=== PATIENT | female | born 1940 | race Caucasian/White ===

== ENCOUNTER 2019-05-15 11:03 | Outpatient (CLI) | payer MEDICARE, BC ==
[2019-05-15 17:25] LABS: BASOPHILS % (AUTO) 0.4 %; EOSINOPHILS # (AUTO) 0.1 10^3/uL (0.0-0.7); EOSINOPHILS % (AUTO) 2.7 %; HGB - HEMOGLOBIN 12.6 g/dL (12.0-16.0); LYMPHOCYTES # (AUTO) 1.6 10^3/uL (1.5-3.5); LYMPHOCYTES % (AUTO) 32.2 %; MEAN CORPUSCULAR HEMOGLOBIN 30.8 pg (27.0-31.0); MEAN CORPUSCULAR HGB CONC 32.1 g/dL (32.0-36.0); MEAN CORPUSCULAR VOLUME 96.1 fL (81.0-99.0); MEAN PLATELET VOLUME 11.2 fL (7.9-10.8); MONOCYTES # (AUTO) 0.5 10^3/uL (0.0-1.0); MONOCYTES % (AUTO) 10.4 %; NEUTROPHILS # (AUTO) 2.6 10^3/uL (1.5-6.6); NEUTROPHILS % (AUTO) 54.1 %; PLT - PLATELET COUNT 217 10^3/uL (130-450); RED BLOOD COUNT 4.09 10^6/uL (4.20-5.40); RED CELL DISTRIBUTION WIDTH 13.7 % (12.0-15.0); WHITE BLOOD COUNT 4.8 x10^3/uL (4.8-10.8)
[2019-05-15 17:54] LABS: ALBUMIN 3.9 g/dL (3.2-5.5); ALBUMIN/GLOBULIN RATIO 1.3 (1.0-2.2); BILIRUBIN,TOTAL 0.7 mg/dL (0.2-1.0); CALCIUM 9.2 mg/dL (8.5-10.3); CREATININE 1.2 mg/dL (0.4-1.0)
[2019-05-15 17:56] LABS: THYROID STIMULATING HORMONE 1.67 uIU/mL (0.34-5.60)
[2019-05-15 17:58] LABS: FREE T4 (FREE THYROXINE) 0.86 ng/dL (0.58-1.64)
[2019-05-15 17:59] LABS: FERRITIN 97.2 ng/mL (11.0-306.8)
[2019-05-15 18:02] LABS: HB2 TOTAL 12.9 g/dL; HEMOGLOBIN A1C 0.45 g/dL; HEMOGLOBIN A1C % 5.3 % (4.6-6.2)
[2019-05-15 18:03] LABS: TOTAL T3 0.88 ng/mL (0.87-1.78)
== END 2019-05-15 11:04 | disposition home or self-care (01) ==
LOC: LAB.S 11:03
PROVIDERS: ATTEND Family Medicine
DX: D64.9 Anemia, unspecified (principal); R53.83 Other fatigue; R73.09 Other abnormal glucose
CPT/HCPCS: 36415; 80053; 82626; 82728; 83036; 83090; 83540; 84439; 84443; 84466; 84480; 84481; 85025

== ENCOUNTER 2019-06-22 10:22 | Outpatient (CLI) | payer MEDICARE, BC ==
--- NOTE | 2019-07-09 12:50 | Mammography Report ---
Reason: ROUTINE MAMMO Procedure Date: 06/22/2019 Accession Number: [id number] / [id number] Procedure: MGS - Screening Mammo Dig Bilat CPT Code: Final Report FULL RESULT: EXAM: Screening Mammo Dig Bilat DATE: 06/22/2019 11:08 AM CLINICAL HISTORY: Screening encounter. Personal history of breast cancer status post left breast lumpectomy in 2006. TECHNIQUE: (B) - Bilateral CC and MLO views were obtained. Left laterally exaggerated cc view is obtained. COMPARISON: 06/23/2018 through 06/24/2009. PARENCHYMAL PATTERN: (A) - The breast(s) demonstrate(s) scattered fibroglandular densities. FINDINGS: Stable postsurgical and posttreatment changes in the left breast. There are no suspicious masses, calcifications, or areas of distortion. IMPRESSION: Benign findings. BI-RADS category 2. RECOMMENDATION: (ANNUAL) - Recommend routine annual screening mammography. BI-RADS CATEGORY: (2) - Benign Findings. STANDARD QUALIFYING STATEMENTS: 1. This examination was not reviewed with the aid of Computer-Aided Detection (CAD). 2. A negative or benign imaging report should not preclude biopsy if clinically suspicious findings are present. 3. Dense breasts may obscure an underlying neoplasm. 4. This examination was reviewed without the aid of 3D breast imaging (tomosynthesis).
== END 2019-06-22 10:23 | disposition home or self-care (01) ==
LOC: DI.S 10:22
PROVIDERS: ATTEND Family Medicine
DX: Z12.31 Encounter for screening mammogram for malignant neoplasm of breast (principal); Z85.3 Personal history of malignant neoplasm of breast
CPT/HCPCS: 77067

== ENCOUNTER 2020-03-28 12:13 | Outpatient (CLI) | payer MEDICARE, BC ==
--- NOTE | 2020-03-31 16:12 | Ultrasound Report ---
LIMITED ULTRASOUND OF LEFT BREAST: 03/28/2020 CLINICAL: Focal left breast pain. Comparison is made to exams dated: 03/28/2020 mammogram, 06/22/2019 mammogram - [facility], and 06/23/2018 mammogram - [facility]. Ultrasound of the left breast 12 o'clock, and retroareolar regions was performed on the area of inte rest. IMPRESSION: NEGATIVE There is no sonographic evidence of malignancy. There is no mammographic or sonographic abnormality seen in the left breast to correspond with the pa in, however, clinical followup is recommended. A 1 year screening mammogram is recommended. This exam was interpreted at Station ID: [id number]. Electronically Signed By: Angeli estrada/tiago:03/28/2020 13:38:30 Ultrasound BI-RADS: 1 Negative BI-RADS CATEGORY: (1) - 1 RECOMMENDATION: (ANNUAL) - Recommend routine annual screening mammography. [id number] 1 year screening LATERALITY: (B)
--- NOTE | 2020-03-31 16:12 | Mammography Report ---
UNILATERAL LEFT DIGITAL DIAGNOSTIC MAMMOGRAM 3D/2D: 03/28/2020 CLINICAL: Personal history of left breast cancer. Occasional left breast pain. Comparison is made to exams dated: 06/22/2019 mammogram - [facility] and 06/23/2018 mammogram - [facility]. The tissue of left breast is predominantly fatty. There are benign vascular calcifications in the left breast. There also are benign post operative fi ndings in the left breast. No significant masses, calcifications, or other findings are seen in the breast. IMPRESSION: INCOMPLETE: NEEDS ADDITIONAL IMAGING EVALUATION There is no mammographic abnormality seen in the left breast to correspond with the pain, however, ta rgeted ultrasound of the left breast is recommended and will be performed immediately following this exam. This exam was interpreted at Station ID: [id number]. NOTE: For mammograms, a report in lay terms will be sent to the patient. Approximately 15% of breast malignancies will not be visualized mammographically. In the management of a palpable breast mass, a negative mammogram must not discourage biopsy of a clinically suspicious lesion. Electronically Signed By: Angeli Mas M.D. lk/:03/28/2020 13:11:34 ACR BI-RADS Category 0: Incomplete 3340F PARENCHYMAL PATTERN: (F) - The breast(s) demonstrate(s) diffuse fatty replacement. BI-RADS CATEGORY: (0) - 0 Ultrasound [id number] Immediate follow-up LATERALITY: (B)
== END 2020-03-28 12:14 | disposition home or self-care (01) ==
LOC: DI 12:13
PROVIDERS: ATTEND Family Medicine
DX: N64.4 Mastodynia (principal)
CPT/HCPCS: 76642

== ENCOUNTER 2020-12-19 11:30 | Outpatient (CLI) | payer MEDICARE, BC ==
--- NOTE | 2020-12-19 14:21 | XRAY Report ---
PROCEDURE: Thoracic Spine 2 View INDICATIONS: LUMBAR/LOWER BACK PX TECHNIQUE: 2 views of the thoracic spine were acquired. COMPARISON: None. FINDINGS: Partially visualized lateral curvature of the spine. No fracture. Scattered multilevel endplate spurr ing and diffuse facet arthropathy. Disc spaces grossly preserved. IMPRESSION: Partially visualized lateral curvature. Diffuse discogenic changes. No fracture. Reviewed by: Del Mora MD on 12/19/2020 2:20 PM PDT Approved by: Del Mora MD on 12/19/2020 2:20 PM PDT Station ID: [id number]
--- NOTE | 2020-12-19 16:36 | XRAY Report ---
PROCEDURE: Lumbar Spine 2 View INDICATIONS: LUMBAR/LOWER BACK PX TECHNIQUE: 2 views of the lumbar spine were acquired. COMPARISON: None. FINDINGS: Bones: There is moderate lumbar levoscoliosis. Anterolisthesis of L4 and L5 measuring 3 mm. Possible retrolisthesis of L2 on L3 measuring 3 mm. Mild wedging of the L1 vertebral body likely degenerative in nature. Vertebral body heights otherwise maintained. Extensive degenerative changes, overall moder ate to severe with disc height loss, degenerative endplate ridging, and facet hypertrophy. Soft tissues: Overlying bowel gas pattern is normal. No suspicious soft tissue calcifications. IMPRESSION: Moderately severe degenerative changes with exacerbation for moderate scoliosis. Conside r MRI for further evaluation. Reviewed by: Gerard Harvey MD on 12/19/2020 4:35 PM PDT Approved by: Gerard Harvey MD on 12/19/2020 4:35 PM PDT Station ID: [id number]
== END 2020-12-19 11:31 | disposition home or self-care (01) ==
LOC: DI.S 11:30
PROVIDERS: ATTEND Family Medicine
DX: M47.816 Spondylosis without myelopathy or radiculopathy, lumbar region (principal); M51.36 Other intervertebral disc degeneration, lumbar region; M41.9 Scoliosis, unspecified; M51.34 Other intervertebral disc degeneration, thoracic region; M47.814 Spondylosis without myelopathy or radiculopathy, thoracic region

== ENCOUNTER 2021-05-11 15:34 | Outpatient (CLI) | payer MEDICARE, BC ==
[2021-05-11 20:20] LABS: ALBUMIN 4.2 g/dL (3.2-5.5); ALBUMIN/GLOBULIN RATIO 1.5 (1.0-2.2); ALKALINE PHOSPHATASE 73 IU/L (42-121); ALT ALANINE AMINOTRANSFERASE 22 IU/L (10-60); AST ASPARTATE AMINOTRANSFERASE 27 IU/L (10-42); BILIRUBIN,TOTAL 0.7 mg/dL (0.2-1.0); BUN - BLOOD UREA NITROGEN 21 mg/dL (6-20); CALCIUM 9.3 mg/dL (8.5-10.3); CARBON DIOXIDE - CO2 24 mmol/L (21-32); CHLORIDE 107 mmol/L (101-111); GFR - MDRD 53 (>89); GLUCOSE 91 mg/dL (70-100); POTASSIUM 4.7 mmol/L (3.5-5.0); SODIUM 140 mmol/L (135-145)
[2021-05-11 20:28] LABS: CRP HIGH SENSITIVITY < 0.5 mg/L
[2021-05-11 20:34] LABS: THYROID STIMULATING HORMONE 2.41 uIU/mL (0.34-5.60)
[2021-05-11 20:36] LABS: FREE T3 2.66 pg/mL (2.5-3.9); FREE T4 (FREE THYROXINE) 0.71 ng/dL (0.58-1.64)
== END 2021-05-11 15:35 | disposition home or self-care (01) ==
LOC: LAB.S 15:34
PROVIDERS: ATTEND Family Medicine
DX: N18.9 Chronic kidney disease, unspecified (principal); R53.83 Other fatigue; E03.9 Hypothyroidism, unspecified; E55.9 Vitamin D deficiency, unspecified; E78.5 Hyperlipidemia, unspecified
CPT/HCPCS: 36415; 80053; 82306; 83090; 84439; 84443; 84480; 84481; 86141

== ENCOUNTER 2021-05-18 14:06 | Outpatient (CLI) | payer MEDICARE, BC ==
--- NOTE | 2021-05-19 14:09 | Mammography Report ---
BILATERAL DIGITAL SCREENING MAMMOGRAM 3D/2D WITH EXAGGERATED CC: 05/18/2021 CLINICAL: Routine screening. Personal history of left breast cancer. Family history of breast cancer. Comparison is made to exams dated: 03/28/2020 ultrasound, 03/28/2020 mammogram, 06/22/2019 mammogram - , and [facility]23/[facility]. The tissue of valarie th breasts is predominantly fatty. There are benign vascular calcifications in the left breast. There also are benign post operative fi ndings in the left breast. No significant masses, calcifications, or other findings are seen in either breast. There has been no significant interval change. IMPRESSION: BENIGN There is no mammographic evidence of malignancy. A 1 year screening mammogram is recommended. This exam was interpreted at Station ID: [id number]. NOTE: For mammograms, a report in lay terms will be sent to the patient. Approximately 15% of breast malignancies will not be visualized mammographically. In the management of a palpable breast mass, a negative mammogram must not discourage biopsy of a clinically suspicious lesion. Electronically Signed By: Gerard Harvey M.D., jr/tiago:05/18/2021 15:00:45 ACR BI-RADS Category 2: Benign Finding(s) 3342F PARENCHYMAL PATTERN: (F) - The breast(s) demonstrate(s) diffuse fatty replacement. BI-RADS CATEGORY: (2) - 2 RECOMMENDATION: (ANNUAL) - Recommend routine annual screening mammography. [id number] 1 year screening LATERALITY: (B)
== END 2021-05-18 14:07 | disposition home or self-care (01) ==
LOC: DI.S 14:06
DX: Z12.31 Encounter for screening mammogram for malignant neoplasm of breast (principal)

== ENCOUNTER 2022-05-05 10:30 | Outpatient (CLI) | payer MEDICARE, BC ==
--- NOTE | 2022-05-05 16:49 | Mammography Report ---
BILATERAL DIGITAL DIAGNOSTIC MAMMOGRAM 3D/2D WITH AXILLARY TAIL: 05/05/2022 CLINICAL: Palpable right axilla lump. Due for Bilateral. Comparison is made to exams dated: 05/18/2021 mammogram, 03/28/2020 mammogram, 06/22/2019 mammogram - [facility], and [facility]. Both breasts are almost entirely fatty (category a/<25% glandular tissue). There is an asymmetry in the right breast posterior depth superior region seen on the mediolateral ob lique view only. This correlates as palpated. No other significant masses, calcifications, or other findings are seen in either breast. IMPRESSION: INCOMPLETE: NEEDS ADDITIONAL IMAGING EVALUATION The asymmetry in the right breast is indeterminate. A targeted ultrasound of the right breast is rec ommended and will be performed immediately following this exam. This exam was interpreted at Station ID: [id number]. NOTE: For mammograms, a report in lay terms will be sent to the patient. Approximately 15% of breast malignancies will not be visualized mammographically. In the management of a palpable breast mass, a negative mammogram must not discourage biopsy of a clinically suspicious lesion. Electronically Signed By: Angeli Mas M.D. lk/:05/05/2022 11:34:24 ACR BI-RADS Category 0: Incomplete 3340F PARENCHYMAL PATTERN: (F) - The breast(s) demonstrate(s) diffuse fatty replacement. BI-RADS CATEGORY: (0) - 0 Ultrasound [id number] Immediate follow-up LATERALITY: (B)
--- NOTE | 2022-05-05 16:50 | Ultrasound Report ---
LIMITED ULTRASOUND OF RIGHT BREAST AND AXILLA: 05/05/2022 CLINICAL: Palpable right breast lump. Comparison is made to exams dated: 05/05/2022 mammogram, 05/18/2021 mammogram, 06/22/2019 mammogram - [facility], and 06/23/2018 mammogram - [facility]. Color flow ultrasound of the right breast 10 o'clock, and axilla regions was performed on the areas o f interest. Macedo scale images of the real-time examination were reviewed. There is an irregular mass in the right axillary tail. This irregular mass is hypoechoic. This hansel elates as palpated. The right axilla was interogated and normal appearing lymph nodes are visualized. IMPRESSION: SUSPICIOUS OF MALIGNANCY No right axillary adenopathy. The irregular mass is at a moderate suspicion for malignancy. An ultrasound guided biopsy is recomme nded. This exam was interpreted at Station ID: [id number]. SUMMARY: This was discussed with the patient by the radiologist Dr. Caba at the time of the exam. Electronically Signed By: Angeli estrada/:05/05/2022 12:04:11 Ultrasound BI-RADS: 4b Moderate suspicion of malignancy BI-RADS CATEGORY: (4b) - Mod Susp Biopsy follow-up [id number] Immediate follow-up LATERALITY: (B)
== END 2022-05-05 10:31 | disposition home or self-care (01) ==
LOC: DI 10:30
PROVIDERS: ATTEND Family Medicine
DX: N63.31 Unspecified lump in axillary tail of the right breast (principal)

== ENCOUNTER 2022-05-13 09:40 | Outpatient (CLI) | payer MEDICARE, BC ==
[~2022-05-13 09:40] MED LIST: LIDOCAINE 1%-EPI 1:100000 20 ML MDV ONE; lidocaine 1% 20 ML MDV ONE
[2022-05-13] MEDS ORDERED: lidocaine 1% 20 ML MDV SUBQ ONE (11:34)
[2022-05-13] MEDS ORDERED: LIDOCAINE 1%-EPI 1:100000 20 ML MDV SUBQ ONE (11:34)
--- NOTE | 2022-05-14 09:50 | Mammography Report ---
UNILATERAL RIGHT DIGITAL DIAGNOSTIC MAMMOGRAM WITH AXILLARY TAIL POST-PROCEDURE IMAGING FOR MARKER PL ACEMENT: 05/13/2022 CLINICAL: Post right breast ultrasound biopsy clip placement imaging. Comparison is made to exams dated: 05/05/2022 mammogram, 05/18/2021 mammogram, 03/28/2020 mammogram, 06/22/2019 mammogram - [facility], and 06/23/2018 mammogram - [facility]. The right breast is almost entirely fatty (category a/<25% glandular tissue). There is a biopsy site marker on the right breast at 10 o'clock at site of mass. IMPRESSION: INCOMPLETE: NEEDS ADDITIONAL IMAGING EVALUATION Clilp is present at [facility] site. This exam was interpreted at Station ID: [id number]. NOTE: For mammograms, a report in lay terms will be sent to the patient. Approximately 15% of breast malignancies will not be visualized mammographically. In the management of a palpable breast mass, a negative mammogram must not discourage biopsy of a clinically suspicious lesion. Electronically Signed By: Keke Rahman M.D. [facility]/:05/13/2022 14:56:42 ACR BI-RADS Category 0: Incomplete 3340F PARENCHYMAL PATTERN: (F) - The breast(s) demonstrate(s) diffuse fatty replacement. BI-RADS CATEGORY: (0) - 0 Unspecified - other recall n/a LATERALITY: (B)
--- NOTE | 2022-05-18 09:54 | Ultrasound Report ---
ULTRASOUND GUIDED BIOPSY RIGHT BREAST USING VACUUM DEVICE WITH MARKING DEVICE INSERTED: 05/13/2022 CLINICAL: Right breast mass. PATIENT CONSENT: Risks (minor bleeding, infection, vasovagal reaction and repeat procedure), benefits and alternatives were explained to the patient and written informed consent was obtained. Correlation is made to exams dated: 05/05/2022 ultrasound, 05/05/2022 mammogram, 05/18/2021 mammogram , 06/22/2019 mammogram - [facility], and 06/23/2018 mammogram - [facility]. An ultrasound guided biopsy using real-time ultrasound was performed for the indistinct lobulated mas s located in the right breast at 10 o'clock anterior depth. This was described on the previous mammo graphy and ultrasound reports. The skin was prepped in the usual manner. Local anesthetic was admin istered to the access site. A skin viola was made in the breast. The abnormality was approached from the lateral aspect. A biopsy needle was placed adjacent to the abnormality under ultrasound guidanc e. Once the needle was documented to be in the correct location, a specimen was obtained using the [employer] ammotome biopsy system. A titanium clip was inserted into the biopsy cavity. A sterile dressing was applied to the access site. The specimen was sent to the laboratory for pathological analysis. IMPRESSION: ULTRASOUND GUIDED BIOPSY MALIGNANT Ultrasound guided biopsy of the mass in the right breast at 10 o'clock posterior depth was successful . Pathology indicates malignant invasive lobular carcinoma. Pathology results are concordant with imag ing findings. A surgical/oncologic consultation is recommended. This exam was interpreted at Station ID: [id number]. Keke Cali M.D. [facility]/:05/18/2022 09:18:26 BI-RADS CATEGORY: () - Unspecified - other recall n/a LATERALITY: (B)
== END 2022-05-13 09:41 | disposition home or self-care (01) ==
LOC: DI 09:40
PROVIDERS: ATTEND Family Medicine
DX: C50.411 Malignant neoplasm of upper-outer quadrant of right female breast (principal); Z17.0 Estrogen receptor positive status [ER+]
CPT/HCPCS: 19083

== ENCOUNTER 2022-08-23 07:57 | Day surgery (SDC) | payer MEDICARE, BC ==
[~2022-08-23 07:57] MED LIST changes: +ACETAMINOPHEN 500 MG TABLET PO ONE; +CEFAZOLIN 2G/50ML 0.9% NS 2 GM/50 ML BAG IV ONE; +CELECOXIB 100 MG CAPSULE PO ONE; -LIDOCAINE 1%-EPI 1:100000 20 ML MDV ONE; -lidocaine 1% 20 ML MDV ONE
--- NOTE | 2022-08-23 08:45 | ANESTHESIA ---
Pre-Anesthesia VS, & Labs - Diagnosis right breast invasive lobular cancer - Procedure right breast lumpectomy and sentinal node biopsy Vital Signs: Temp Pulse Resp BP Pulse Ox O2 Flow Rate 36.6 C 71 12 124/69 100 08/23/22 08:12 08/23/22 08:12 08/23/22 08:12 08/23/22 08:12 08/23/22 08:12 Height: 5 ft 2 in Weight (kg): 64 kg Body Mass Index: 25.8 BMI Classification: Overweight - NPO >8 hours - Is Patient ?: No Home Medications and Allergies Home Medications: Ambulatory Orders Berberine 500 mg PO BID 08/18/22 Calcium Carbonate/Vitamin D3 [Calcium 600 mg-Vit D3 10Mcg Tb] 1 each PO DAILY 08/18/22 Glucos Sul 2Kcl/MSM/Chond/C/Mn [Glucosamine Chondroitin Cap] 1 cap PO DAILY 08/18/22 Methyl Care 2 cap PO DAILY 08/18/22 Ascorbic Acid [Vitamin C] 1,000 mg PO DAILY 06/23/22 Cholecalciferol (Vitamin D3) [D3-5000] 50 mcg PO DAILY 06/23/22 Magnesium Citrate 250 mg PO DAILY 06/23/22 Berberine 500 mg PO BID 08/18/22 Calcium Carbonate/Vitamin D3 [Calcium 600 mg-Vit D3 10Mcg Tb] 1 each PO DAILY 08/18/22 Glucos Sul 2Kcl/MSM/Chond/C/Mn [Glucosamine Chondroitin Cap] 1 cap PO DAILY 08/18/22 Methyl Care 2 cap PO DAILY 08/18/22 Allergies/Adverse Reactions: Allergies Allergy/AdvReac Type Severity Reaction Status Date / Time No Known Drug Allergies Allergy Verified 06/23/22 17:02 Anes History & Medical History - Anesthetic History Anesthesia Complications: reports: No previous complications - Medical History Cardiovascular: reports: None Pulmonary: reports: Asthma Gastrointestinal: reports: None Urinary: reports: Incontinence Neuro: reports: Dementia Musculoskeletal: reports: Chronic back pain Endocrine/Autoimmune: reports: None Blood Disorders: reports: None Skin: reports: Other Smoking Status: Never smoker Psychosocial: reports: No issues indicated History of Cancer?: Yes (breast) - Surgical History General: reports: Colonoscopy, Other Exam General: Alert, Oriented x3, Cooperative, No acute distress Dental: WNL Mouth Openin Fingerbreadth Neck Mobility: Normal Mallampati classification: III Thyromental Distance: less than 4 cm Mental/Cognitive Status: Alert/Oriented X3, Normal for patient Plan Anesthesia Type: General Consent for Procedure(s) Verified and Reviewed: Yes Code Status: Attempt Resuscitation ASA classification: 3-Severe systemic disease Is this case an emergency?: No
[2022-08-23] MEDS ORDERED: fentaNYL 100 MCG/2 ML VIAL ONE (09:28)
[2022-08-23] MEDS ORDERED: PROPOFOL 200 MG/20 ML VIAL IVP ONE (09:29)
[2022-08-23] MEDS ORDERED: LIDOCAINE MPF 2%-EPI 1:200000 20 ML VIAL ONE (10:02)
[2022-08-23] MEDS ORDERED: BUPIVACAINE 0.5% PF 30 ML VIAL ONE (10:03)
[2022-08-23] MEDS ORDERED: BUPIVACAINE 0.5% PF 30 ML VIAL INFIL ONE ×2 (11:25)
[2022-08-23] MEDS ORDERED: LIDOCAINE 2%-EPI 1:100000 20 ML MDV SUBQ ONE ×2 (11:25)
[2022-08-23] MEDS ORDERED: HYDROmorphone 1 MG/ML CARPUJECT ONE (11:26)
--- NOTE | 2022-08-23 11:44 | Mammography Report ---
PROCEDURE: Breast Specimen Surgical INDICATIONS: RIGHT BREAST SPECI TECHNIQUE: Intraoperative film of the breast surgical specimen acquired. COMPARISON: Postbiopsy mammograms 05/13/2022 and diagnostic mammogram 05/05/2022 FINDINGS: The coil biopsy marker is not seen in the specimen. There is a spiculated asymmetry present in the specimen from approximately E through G, 4 through 5. Lumpectomy was performed by palpation. IMPRESSION: 1. The imaged specimen probably includes the abnormality, but does not include the localizing clip. 2. Findings were relayed to the surgeon in the operating room at 1140 hours. Reviewed by: Christina Canada MD on 08/23/2022 11:43 AM PDT Approved by: Christina Canada MD on 08/23/2022 11:43 AM PDT Station ID: [id number]
[2022-08-23] MEDS ORDERED: ONDANSETRON 4 MG/2 ML VIAL ONE ×2 (11:52→14:05)
[2022-08-23] MEDS ORDERED: LACTATED RINGERS 1,000 ML IV ONE (12:04)
[2022-08-23] MEDS ORDERED: ATROPINE ABBOJECT 1 MG/10 ML SYRINGE IVP PRN (12:08)
[2022-08-23] MEDS ORDERED: MORPHINE 2 MG/ML CARPUJECT IVP PRN (12:08)
[2022-08-23] MEDS ORDERED: ONDANSETRON 4 MG/2 ML VIAL IVP PRN ×2 (12:08→12:20)
[2022-08-23] MEDS ORDERED: HYDROmorphone 0.5 MG/0.5 ML SYRINGE IVP PRN (12:08)
[2022-08-23] MEDS ORDERED: fentaNYL 100 MCG/2 ML VIAL IVP PRN (12:08)
[2022-08-23] MEDS ORDERED: NALOXONE 0.4 MG/ML VIAL IVP PRN (12:08)
[2022-08-23] MEDS ORDERED: oxyCODONE 5 MG TABLET PO PRN (12:20)
[2022-08-23] MEDS ORDERED: ACETAMINOPHEN 325 MG TABLET PO PRN (12:20)
[2022-08-23] MEDS ORDERED: IBUPROFEN 600 MG TABLET PO PRN (12:20)
--- NOTE | 2022-08-23 12:23 | OPERATIVE REPORT ---
Operative Report - General Procedure Date: 08/23/22 Planned Procedure: Right lumpectomy and sentinel lymph node biopsy Pre-Op Diagnosis: Invasive lobular carcinoma Procedure Performed: Right lumpectomy and sentinel lymph node biopsy Post Op Diagnosis: Invasive lobular carcinoma - Procedure Note Primary Surgeon: Dr. Hyacinth Nath Anesthesia Technique: General ET tube, Local Pathology: 1.Right breast lumpectomy, invasive lobular carcinoma, short superior, long lateral, skin anterior 2. Superior margin reexcision, short superior, long lateral, double anterior 3. Victor lymph node #1, 881 4. Victor lymph node #2, 1118 Estimated Blood Loss (mL): 20 Indications: Patient has a palpable mass in the axillary tail of her right breast. The mass is increased in size over the last 1 year. Biopsy-proven invasive lobular carcinoma. The patient was seen and evaluated in the clinic where we discussed the risks, benefits, and alternatives of lumpectomy with sentinel lymph node biopsy. The patient was also discussed at tumor board and sentinel lymph node biopsy was felt to be helpful in guiding her further treatment. The risks, benefits, and alternatives of surgery including bleeding, infection, damage to surrounding structures, and the possible need for further surgeries or procedures were discussed with the patient preoperatively. She voiced understanding, her questions were answered, and she wished to proceed. A consent was signed by the patient. Findings: 1.Right breast lumpectomy, invasive lobular carcinoma, short superior, long lateral, skin anterior; Palpable mass, skin excised 2. Superior margin reexcision, short superior, long lateral, double anterior 3. Victor lymph node #1, 881 4. Victor lymph node #2, 1118 Complications: None - Other Other Information/Narrative: The patient was taken to the operating room and placed in the supine position. Preop antibiotics were given. ERAS medications were given. The patient was prepped and draped in the usual sterile fashion. A preop surgical timeout was performed. Attention was turned to the patient's right breast. An elliptical incision was made which incorporated both palpable masses and the overlying skin due to the concern for possible skin involvement on the patient's MRI. Skin flaps were raised superiorly and inferiorly to the incision. At this point, serrated scissors were used to perform a lumpectomy staying approximately 1 cm away from the palpable masses in all dimensions. The lumpectomy specimen was removed and oriented with suture on the back table. The specimen was sent to mammography and the biopsy clip was not confirmed to be within the specimen, however the mass appears consistent with that previously seen on her mammogram. The specimen was then sent to pathology. The edges of the lumpectomy cavity were inspected and there were no palpable abnormalities. The closest margin on palpation of the specimen was the superior margin, so a small additional specimen was taken from this location, and oriented on the back table with suture. The superior, inferior, medial, lateral, and deep margins of the lumpectomy excision were marked with clips. Hemostasis was confirmed in the lumpectomy cavity. As the lumpectomy was performed from the axillary tail, the sentinel lymph node dissection was undertaken through the same incision. The sentinel lymph nodes were identified using the neoprobe. Clips were used proximally and distally to the nodes and the nodes were removed the first node had a maximal reading of 881 on the back table. The second sentinel lymph node measured 1118 on the back table. On further inspection, there were no additional lymph nodes that had at least 10% uptake, [112], and no abnormal palpable nodes. Hemostasis was confirmed in the axilla. The deep dermal tissues were closed with 3-0 Vicryl. A 4-0 Monocryl running stitch was placed in a subcuticular fashion. Skin glue was placed over the incision. The patient tolerated the procedure well. There were no complications.
[2022-08-23] MEDS ORDERED: LACTATED RINGERS 1,000 ML IV SCH (13:00)
[2022-08-23 15:37] VITALS: BP 126/73
--- NOTE | 2022-08-23 15:49 | ANESTHESIA POST OP EVALUATION ---
Anesthesia Post Eval - Post Anesthesia Eval Vitals: Last Vital Signs Temp 36.2 C L 08/23/22 15:29 Pulse 75 08/23/22 15:29 Resp 14 08/23/22 15:29 BP 126/73 08/23/22 15:29 Pulse Ox 97 08/23/22 15:29 O2 Flow Rate CV Function Including HR & BP: Stable Pain Control: Satisfactory Nausea & Vomiting: Negative Mental Status: Baseline Respiratory Status: Airway Patent Hydration Status: Satisfactory Anesthesia Complications: None
== END 2022-08-23 07:58 | disposition home or self-care (01) ==
LOC: SDS 07:57
PROVIDERS: ATTEND Surgery
PROC: 0HBT0ZZ Excision of Right Breast, Open Approach (ICD-10-PCS; principal; 2022-08-23 10:45)
PROC: 07B50ZX Excision of Right Axillary Lymphatic, Open Approach, Diagnostic (ICD-10-PCS; 2022-08-23 10:45)
DX: C50.911 Malignant neoplasm of unspecified site of right female breast (principal); Z17.0 Estrogen receptor positive status [ER+]; J45.909 Unspecified asthma, uncomplicated
CPT/HCPCS: 19301; 38525; 38792; 76098; A9270; A9520; J0690; J1170; J7120

== ENCOUNTER 2022-10-20 13:29 | Outpatient (CLI) | payer MEDICARE, BC ==
[2022-10-20 19:50] LABS: BASOPHILS % (AUTO) 0.6 %; EOSINOPHILS # (AUTO) 0.1 10^3/uL (0.0-0.7); EOSINOPHILS % (AUTO) 1.8 %; HCT - HEMATOCRIT 42.5 % (37.0-47.0); HGB - HEMOGLOBIN 13.8 g/dL (12.0-16.0); LYMPHOCYTES # (AUTO) 1.7 10^3/uL (1.5-3.5); LYMPHOCYTES % (AUTO) 30.6 %; MEAN CORPUSCULAR HEMOGLOBIN 31.4 pg (27.0-31.0); MEAN CORPUSCULAR HGB CONC 32.5 g/dL (32.0-36.0); MEAN CORPUSCULAR VOLUME 96.8 fL (81.0-99.0); MEAN PLATELET VOLUME 10.9 fL (7.9-10.8); MONOCYTES # (AUTO) 0.4 10^3/uL (0.0-1.0); MONOCYTES % (AUTO) 8.1 %; NEUTROPHILS # (AUTO) 3.2 10^3/uL (1.5-6.6); NEUTROPHILS % (AUTO) 58.7 %; PLT - PLATELET COUNT 226 10^3/uL (130-450); RED BLOOD COUNT 4.39 10^6/uL (4.20-5.40); RED CELL DISTRIBUTION WIDTH 13.3 % (12.0-15.0); WHITE BLOOD COUNT 5.4 x10^3/uL (4.8-10.8)
[2022-10-20 20:13] LABS: ALBUMIN 3.9 g/dL (3.2-5.5); ALBUMIN/GLOBULIN RATIO 1.3 (1.0-2.2); ALKALINE PHOSPHATASE 84 IU/L (42-121); ALT ALANINE AMINOTRANSFERASE 23 IU/L (10-60); AST ASPARTATE AMINOTRANSFERASE 27 IU/L (10-42); BILIRUBIN,TOTAL 0.7 mg/dL (0.2-1.0); BUN - BLOOD UREA NITROGEN 20 mg/dL (6-20); CALCIUM 9.4 mg/dL (8.5-10.3); CARBON DIOXIDE - CO2 26 mmol/L (21-32); CHLORIDE 107 mmol/L (101-111); CREATININE 0.9 mg/dL (0.4-1.0); GFR - MDRD 60 (>89); GLUCOSE 88 mg/dL (70-100); POTASSIUM 3.9 mmol/L (3.5-5.0); SODIUM 138 mmol/L (135-145); TOTAL PROTEIN 6.8 g/dL (6.7-8.2)
[2022-10-20 20:16] LABS: CRP HIGH SENSITIVITY < 0.5 mg/L
[2022-10-20 20:30] LABS: THYROID STIMULATING HORMONE 1.85 uIU/mL (0.34-5.60)
[2022-10-20 20:32] LABS: FREE T3 3.09 pg/mL (2.5-3.9); FREE T4 (FREE THYROXINE) 0.86 ng/dL (0.58-1.64)
[2022-10-20 20:37] LABS: FERRITIN 38.9 ng/mL (11.0-306.8)
[2022-10-20 21:17] LABS: ESTIMATED AVERAGE GLUCOSE 103 mg/dL (70-100); HEMOGLOBIN A1c% 5.2 % (4.27-6.07)
== END 2022-10-20 13:30 | disposition home or self-care (01) ==
LOC: LAB.S 13:29
PROVIDERS: ATTEND Family Medicine
DX: R53.83 Other fatigue (principal); E55.9 Vitamin D deficiency, unspecified; N18.9 Chronic kidney disease, unspecified; C50.919 Malignant neoplasm of unspecified site of unspecified female breast; E78.5 Hyperlipidemia, unspecified; M81.0 Age-related osteoporosis without current pathological fracture; D64.9 Anemia, unspecified; R73.09 Other abnormal glucose
CPT/HCPCS: 36415; 80053; 82306; 82626; 82728; 83036; 83090; 84439; 84443; 84480; 84481; 85025; 86141

== ENCOUNTER 2023-06-27 12:31 | Outpatient (CLI) | payer MEDICARE, BC ==
--- NOTE | 2023-06-28 16:41 | Mammography Report ---
BILATERAL DIGITAL DIAGNOSTIC MAMMOGRAM 3D/2D WITH SPOT COMPRESSION - RIGHT BREAST POST LUMPECTOMY: CLINICAL: Patient returns for a 12 month follow up of the right breast, due for bilateral exam. Comparison is made to exams dated: 05/13/2022 mammogram, 05/05/2022 mammogram, 05/18/2021 mammogram, 1 mammogram, 06/22/2019 mammogram - [facility], and 06/23/2018 mammogram - [facility]. Both breasts are almost entirely fatty (category a/<25% glandular tissue). There are benign surgical clips and post surgical scar in the right breast at 11 o'clock that correla te with most recent surgical site. There also are benign post radiation changes in the right breast. Additionally, there are stable surgical clips in the left breast that correlate with surgical site. No significant masses, calcifications, or other findings are seen in either breast. IMPRESSION: BENIGN Expected surgical changes, new on the right, and stable on the left. There is no mammographic evidenc e of malignancy. Continue mammogram screening per oncology is recommended. Findings and recommendations were conveyed to the patient at time of exam. This exam was interpreted at Station ID: [id number]. NOTE: For mammograms, a report in lay terms will be sent to the patient. Approximately 15% of breast malignancies will not be visualized mammographically. In the management of a palpable breast mass, a negative mammogram must not discourage biopsy of a clinically suspicious lesion. Electronically Signed By: Christina cano/:06/27/2023 13:51:10 ACR BI-RADS Category 2: Benign Finding(s) 3342F PARENCHYMAL PATTERN: (F) - The breast(s) demonstrate(s) diffuse fatty replacement. BI-RADS CATEGORY: (2) - 2 Mammogram [id number] return to screening LATERALITY: (B)
== END 2023-06-27 12:32 | disposition home or self-care (01) ==
LOC: DI 12:31
PROVIDERS: ATTEND Internal Medicine Hematology & Oncology
DX: C50.919 Malignant neoplasm of unspecified site of unspecified female breast (principal)